=== PATIENT | female | born 1980 | race Caucasian/White ===

== ENCOUNTER 2017-03-18 12:14 | Emergency (ER) | payer MEDICAID ==
[2017-03-18 12:14] VITALS: BMI 33.5
[2017-03-18 12:26] VITALS: TEMP 97.8
[2017-03-18] MEDS ORDERED: DiphenhydrAMINE 50 mg/ml Inj IVP STA (12:48)
[2017-03-18] MEDS ORDERED: Sodium Chloride 0.9% 1,000 ML IV STA (12:48)
--- NOTE | 2017-03-18 12:57 | ED PDOC ---
Arrival/HPI - General Chief Complaint: ENT Problem Time Seen by Provider: 03/18/17 12:27 Historian: Patient - History of Present Illness Narrative History of Present Illness (Text): 03/18/17 12:56 A 37 year old female, whose past medical history includes migraines and anxiety , presents to the emergency department complaining of sinus congestion to right side of face, nausea, vomiting and anxiety that started yesterday. Patient describes headache as pressure and reports to taking Excedrin. Notes sore throat that started last night. Patient denies any fever or any other complaints at this Time/Duration: Other (yesterday) Symptom Onset: Sudden Symptom Course: Unchanged Activities at Onset: Rest Context: Home Past Medical History - Provider Review Nursing Documentation Reviewed: Yes - Infectious Disease Hx of Infectious Diseases: None - Tetanus Immunization Tetanus Immunization: Unknown - Past Medical History Past Medical History: No Previous - Cardiac Hx Cardiac Disorders: No Other/Comment: ANXIETY, TUBO OVARIAN ABSCESS ANEMIA - Pulmonary Hx Respiratory Disorders: No - Neurological Hx Neurological Disorder: Yes Hx Migraine: Yes - HEENT Hx HEENT Disorder: Yes Other/Comment: CHRONIC SINUS CONGESTION - Renal Hx Renal Disorder: No - Endocrine/Metabolic Hx Endocrine Disorders: No - Hematological/Oncological Hx Blood Disorders: No - Musculoskeletal/Rheumatological Hx Falls: No - Gastrointestinal Hx Gastrointestinal Disorders: Yes Hx Gall Bladder Disease: Yes - Genitourinary/Gynecological Hx Genitourinary Disorders: Yes Other/Comment: Patient reports History of an "abcess bwtween her uterus and abdomen" in 08/2009 - Psychiatric Hx Psychophysiologic Disorder: Yes Hx Anxiety: Yes Hx Depression: Yes Hx Substance Use: No Other/Comment: ADHD - Surgical History Hx Appendectomy: Yes Hx Section: Yes Hx Cholecystectomy: Yes Hx Tubal Ligation: Yes Other/Comment: Laporscopic procedure for "abcess drainage between uterus and abdomen" - Anesthesia Hx Anesthesia: Yes Hx Anesthesia Reactions: No Hx Malignant Hyperthermia: No - Suicidal Assessment Feels Threatened In Home Enviroment: No Family/Social History - Physician Review Nursing Documentation Reviewed: Yes Family/Social History: No Known Family HX Smoking Status: Former Smoker Hx Alcohol Use: No Hx Substance Use: No Hx Substance Use Treatment: No Allergies/Home Meds Allergies/Adverse Reactions: Allergies No Known Allergies Allergy (Verified 03/18/17 12:17) Home Medications: Home Meds Medication Instructions Recorded Confirmed Dextroamphetamine/Amphetamine 10 mg PO TID 03/18/17 03/18/17 [Adderall 10 mg Tablet] Iron Carb,Gl/FA/B12/C/Docusate 1 tab PO DAILY 03/18/17 03/18/17 [Ferralet 90] Lamotrigine 25 mg PO HS 03/18/17 03/18/17 Review of Systems - Physician Review All systems were reviewed & negative as marked: Yes - Review of Systems Constitutional: absent: Fevers ENT: Sore Throat, Sinus Congestion (right sided facial) Gastrointestinal: Nausea, Vomiting Psychiatric: Anxiety Physical Exam Vital Signs Reviewed: Yes Vital Signs Temp Pulse Resp BP Pulse Ox 03/18/17 15:05 88 16 117/67 100 03/18/17 12:20 97.8 F 84 18 125/85 96 Temperature: Afebrile Blood Pressure: Normal Pulse: Regular Respiratory Rate: Normal Appearance: Positive for: Well-Appearing, Non-Toxic, Comfortable Pain Distress: None Mental Status: Positive for: Alert and Oriented X 3 - Systems Exam Head: Present: Atraumatic, Normocephalic, Tenderness (right sided facial tenderness) Pupils: Present: PERRL Extroacular Muscles: Present: EOMI Conjunctiva: Present: Normal Mouth: Present: Moist Mucous Membranes Neck: Present: Normal Range of Motion Respiratory/Chest: Present: Clear to Auscultation, Good Air Exchange. No: Respiratory Distress, Accessory Muscle Use Cardiovascular: Present: Regular Rate and Rhythm, Normal S1, S2. No: Murmurs Abdomen: Present: Normal Bowel Sounds. No: Tenderness, Distention, Peritoneal Signs Back: Present: Normal Inspection Upper Extremity: Present: Normal Inspection. No: Cyanosis, Edema Lower Extremity: Present: Normal Inspection. No: Edema Neurological: Present: GCS=15, CN II-XII Intact, Speech Normal Skin: Present: Warm, Dry, Normal Color. No: Rashes Psychiatric: Present: Alert, Oriented x 3, Normal Insight, Normal Concentration Medical Decision Making ED Course and Treatment: 03/18/17 12:54 Impression: A 37 year old female with sinus congestion to right side of face, nausea, vomiting, anxiety and sore throat. Plan: -- CT head -- labs -- Urinalysis -- IV fluids, Reglan, Benadryl, Augmentin -- Reassess and disposition Prior Visits: Notes and results from previous visits were reviewed. Patient was last seen in the emergency department on 04/10/15 for evaluation of epigastric discomfort, diarrhea, nausea, vomiting and generalized weakness. Progress Notes: 03/18/17 15:37 CT HEAD WITHOUT CONTRAST Creator : Yoana Alberto MD IMPRESSION: No acute intracranial pathology identified. - Lab Interpretations Lab Results: 03/18/17 13:39 03/18/17 13:39 Lab Results 03/18/17 13:39: Sodium 142, Potassium 4.3, Chloride 106, Carbon Dioxide 29, Anion Gap 11, BUN 14, Creatinine 0.7, Est GFR ( Amer) > 60, Est GFR (Non- Af Amer) > 60, Random Glucose 105, Calcium 9.3, Total Bilirubin 0.4, AST 28, ALT 27, Alkaline Phosphatase 64, Total Protein 7.9, Albumin 4.0, Globulin 3.8, Albumin/Globulin Ratio 1.1 03/18/17 13:39: PT 11.4, INR 0.99, APTT 24.2 L 03/18/17 13:39: WBC 9.4, RBC 4.44, Hgb 12.3, Hct 38.7, MCV 87.2, MCH 27.7, MCHC 31.8, RDW 14.0, Plt Count 248, MPV 10.8, Gran % 75.8 H, Lymph % (Auto) 13.9 L, [place] % (Auto) 6.3 H, Eos % (Auto) 3.8, Baso % (Auto) 0.2, Gran # 7.14 H, Lymph # (Auto) 1.3, [place] # (Auto) 0.6, Eos # (Auto) 0.4, Baso # (Auto) 0.02 03/18/17 13:30: Influenza Typ A,B (EIA) Negative for flu a/b 03/18/17 13:22: Urine HCG, Qual Negative I have reviewed the lab results: Yes - RAD Interpretation Radiology Orders: 03/18/17 15:02 HEAD W/O CONTRAST [CT] Stat - Medication Orders Current Medication Orders: Discontinued Medications Amoxicillin/Clavulanate Potassium (Augmentin 875 Mg-125 Mg Tab) 1 tab PO STAT STA PRN Reason: Protocol Stop: 03/18/17 14:12 Last Admin: 03/18/17 14:35 Dose: 1 tab Diphenhydramine HCl (Benadryl) 25 mg IVP STAT STA Stop: 03/18/17 12:49 Last Admin: 03/18/17 13:24 Dose: 25 mg IVP Administration Document 03/18/17 13:24 OCS (Rec: 03/18/17 13:24 OCS [id number]) Charges for Administration # of IVP Administrations 1 Sodium Chloride (Sodium Chloride 0.9%) 1,000 mls @ 999 mls/hr IV .Q1H1M STA Stop: 03/18/17 13:48 Last Admin: 03/18/17 13:26 Dose: 999 mls/hr eMAR Start Stop Document 03/18/17 13:26 OCS (Rec: 03/18/17 13:26 OCS [id number]) Intravenous Solution Start Date 03/18/17 Start Time 13:26 End Date 03/18/17 End time 14:27 Total Infusion Time 61 Metoclopramide HCl (Reglan) 10 mg IVP STAT STA Stop: 03/18/17 12:49 Last Admin: 03/18/17 13:24 Dose: 10 mg IVP Administration Document 03/18/17 13:24 OCS (Rec: 03/18/17 13:25 OCS [id number]) Charges for Administration # of IVP Administrations 1 - Scribe Statement The provider has reviewed the documentation as recorded by the hSanda Arevalo Provider Scribe Attestation: All medical record entries made by the Scribe were at my direction and personally dictated by me. I have reviewed the chart and agree that the record accurately reflects my personal performance of the history, physical exam, medical decision making, and the department course for this patient. I have also personally directed, reviewed, and agree with the discharge instructions and disposition. Disposition/Present on Arrival - Present on Arrival Any Indicators Present on Arrival: No History of DVT/PE: No History of Uncontrolled Diabetes: No Urinary Catheter: No History of Decub. Ulcer: No History Surgical Site Infection Following: None - Disposition Have Diagnosis and Disposition been Completed?: Yes Diagnosis: Sinusitis, Headache Disposition: HOME/ ROUTINE Disposition Time: 14:11 Patient Problems: Current Active Problems Problem Status Onset Headache Acute Sinusitis Acute Condition: STABLE Discharge Instructions (ExitCare): Sinusitis (ED), Acute Headache (ED) Additional Instructions: please follow up with your doctor. return to er with worsening symptoms or concerns. Prescriptions: Amoxicillin/Clavulanate [Augmentin 875 MG-125 MG] 1 tab PO BID #20 tab Referrals: Erwin Meek MD [Primary Care Provider] - Follow up with primary Forms: [employer] (Fijian)
[2017-03-18 13:51] LABS: BASO # 0.02 K/mm3 (0.0-2.0); BASO % 0.2 % (0.0-3.0); EOS # 0.4 (0.0-0.7); EOS % 3.8 % (1.5-5.0); GRAN # 7.14 (1.4-6.5); GRAN % 75.8 % (50.0-68.0); HEMOGLOBIN 12.3 g/dL (12.0-16.0); LYMPH # 1.3 (1.2-3.4); LYMPH % 13.9 % (22.0-35.0); MEAN CELL VOLUME 87.2 fl (80.0-105.0); MEAN CORPUSCULAR HEMOGLOBIN 27.7 pg (25.0-35.0); MEAN CORPUSCULAR HGB CONC 31.8 g/dl (31.0-37.0); MEAN PLATELET VOLUME 10.8 fl (7.0-11.0); MONO # 0.6 (0.1-0.6); MONO % 6.3 % (1.0-6.0); RBC 4.44 10^6/uL (3.5-6.1); WHITE BLOOD COUNT 9.4 10^3/ul (4.5-11.0)
[2017-03-18 14:00] LABS: ALB/GLOB RATIO 1.1 (1.1-1.8); ALT/SGPT 27 U/L (7-56); AST/SGOT 28 U/L (14-36); BLOOD UREA NITROGEN 14 mg/dL (7-21); CALCIUM 9.3 mg/dL (8.4-10.5); GFR AFRICAN-AMERICAN > 60; GFR NON-AFRICAN AMERICAN > 60
[2017-03-18 14:04] LABS: INR 0.99 (0.93-1.08); PARTIAL THROMBOPLASTIN TIME 24.2 Seconds (25.1-36.5); PROTHROMBIN TIME 11.4 SECONDS (9.4-12.5)
[2017-03-18] MEDS ORDERED: Amoxicillin-Clav 875-125 mg Tab PO STA (14:11)
[2017-03-18 15:06] VITALS: BP 117/67; PULSE 88; RESP 16; O2SAT 100
--- NOTE | 2017-03-18 15:33 | CT ---
PROCEDURE: CT HEAD WITHOUT CONTRAST. HISTORY: hilario COMPARISON: None available. TECHNIQUE: Axial computed tomography images were obtained through the head/brain without intravenous contrast. Radiation dose: Total exam DLP = 836.90 mGy-cm. This CT exam was performed using one or more of the following dose reduction techniques: Automated exposure control, adjustment of the mA and/or kV according to patient size, and/or use of iterative reconstruction technique. FINDINGS: HEMORRHAGE: No intracranial hemorrhage. BRAIN: No mass effect or edema. The mejia-white matter differentiation appears intact. VENTRICLES: No hydrocephalus. CALVARIUM: Unremarkable. PARANASAL SINUSES: Mucosal thickening of ethmoid air cells. Otherwise unremarkable. MASTOID AIR CELLS: Unremarkable as visualized. No inflammatory changes. OTHER FINDINGS: None. IMPRESSION: No acute intracranial pathology identified.
== END 2017-03-18 16:18 | disposition home or self-care (01) ==
LOC: ED 12:14
DX: J32.9 Chronic sinusitis, unspecified (principal); R51 Headache; Z87.891 Personal history of nicotine dependence
CPT/HCPCS: 70450; 80053; 84703; 85025; 85610; 85730; 87804; 96361; 96374; 96375; 99284; J1200; J2765; J7040

== ENCOUNTER 2017-08-08 09:56 | Day surgery (SDC) | payer MEDICAID ==
[2017-07-27 09:37] VITALS: BMI 34.9
[2017-08-08] MEDS ORDERED: Propofol 10 mg/ml Inj (20 ML) ONE (10:26)
[2017-08-08] MEDS ORDERED: Lidocaine 2% Inj (20ml) ONE (11:14)
[2017-08-08] MEDS ORDERED: Sodium Chloride 0.9% 1,000 ML IV SCH (11:45)
[2017-08-08 12:32] VITALS: BP 131/74; PULSE 84; RESP 16; TEMP 97.6; O2SAT 100
== END 2017-08-08 13:23 | disposition home or self-care (01) ==
LOC: ENDO 09:56
PROVIDERS: ATTEND Internal Medicine Gastroenterology
DX: K29.30 Chronic superficial gastritis without bleeding (principal); B96.81 Helicobacter pylori [H. pylori] as the cause of diseases classified elsewhere
CPT/HCPCS: 43239; 84703; 88305; 88312; 88342; J2704; J7030; J7040